=== PATIENT | female | born 1950 | race Caucasian/White ===

== ENCOUNTER 2016-10-29 11:02 | Emergency (ER) | payer MEDICARE, OTHER ==
[2016-10-29 13:16] VITALS: BP 166/65
--- NOTE | 2016-11-01 17:14 | CR ---
INDICATION: Lightheaded, diaphoresis, dialysis, question silent WI. CHEST: Portable AP upright view of the chest 10/29/2016 was compared with 05/24, again revealing the heart to be enlarged with the addition of bipolar pacemaker leads and apparently an AICD. A definite active infiltrate or effusion was not identified. Somewhat elevated right hemidiaphragm is again noted, likely this is anatomic in nature. The aorta is tortuous and calcified. IMPRESSION: ASHD with cardiomegaly and pacer, as well as AICD leads. MTDD
--- NOTE | 2016-11-02 11:16 | ER ---
DATE SEEN: 10/29/2016 The patient was seen at 1110 hours this morning. CHIEF COMPLAINT: Lightheadedness without chest pain, heaviness, irregular heartbeat, diaphoresis, shortness of breath, coughing, palpitations, arm pain, jaw pain, neck pain, back pain, or abdominal pain, diarrhea, fever, chills, cough, dyspnea on exertion, orthopnea, pedal edema. HISTORY OF PRESENT ILLNESS: This 65-year-old woman, who has been on home dialysis since 2014, has previous SD and 2 stents placed in 2014. Today, she had mild diaphoresis and felt slightly clammy when she got up and walked around. Noted her blood pressure was 80/60, and normally it has been up to 102/70. She normally has her home dialysis (which she has had for years) around noontime. She has not had her dialysis yet today. She has dyspnea at approximately 5 feet. This is not unusual for her. Does not put out urine because she has chronic kidney disease. She had a stent placed in her right leg at least 6 months ago. Normally, she weighs 91 kg, and she weighed 91 kg this morning. PAST MEDICAL HISTORY AND PREVIOUS SURGERY: Peritoneal dialysis site; stent, right leg for atherosclerosis 6 months ago; SD with 2 stents in 2014; and dentures, edentulous, teeth removed. CURRENT MEDICATIONS: 1. Potassium chloride 20 mEq daily. 2. Metoprolol tartrate 25 mg daily. 3. Cinacalcet (Sensipar) 30 mg daily, a calcium binder. 4. Amlodipine 2.5 mg daily. 5. Simvastatin 20 mg daily. 6. Sevelamer carbonate (Renvela) 800 mg daily. REVIEW OF SYSTEMS: Negative, except as noted in HPI. PHYSICAL EXAMINATION: VITAL SIGNS: Blood pressure 113/70 and that was repeated at 165/65, heart rate 84 and the heart rate later was 98, respirations 18, oxygen saturation 98% and also 100%. GENERAL: The patient is alert, mildly obese, pear-shaped woman, in no acute distress. She has moderate dark pigmentation on her skin. She is attended by 2 daughters, granddaughter, and her son. Alert woman, she is edentulous. Pleasant in demeanor. HEENT: No scleral icterus noted. PERRLA intact. Pharynx is without abnormality. Mucosa is of normal appearance. No erythema noted. No sinus pressure, discomfort, rhinorrhea, or nasal discomfort. Hearing is good. NECK: No bruits. There are transmitted first, second, third, and fourth heart sounds to the neck. S2 is greater than S1. HEART: S1, S2. There is a soft systolic murmur on the left parasternal border radiating to the neck. LUNGS: Clear to auscultation without rales, rhonchi, or wheezes. Heart: No arrhythmia noted. Chest wall nontender. ABDOMEN: Nontender, has increased abdominal girth. Dialysis site is noted. No sign of erythema, redness, or increased warmth. Dialysis site is clean. No CVA or percussion tenderness. LOWER EXTREMITIES: Trace pedal edema. Pulses: Dorsalis pedis and radius and ulnar pulses are normal in upper and lower extremities. Blood pressures were 113/70, 119/70, 107/56. SKIN: Without diaphoresis. LABORATORY FINDINGS: Hemoglobin 11.7, increased MCH at 35, increased MCV at 103, PMNs 94, lymphocytes 4, monos 2. Complete metabolic panel; sodium 136, potassium 3.8, chloride 97, bicarb 22, BUN 52, creatinine 8.8. GFR 5, BUN and creatinine ratio 5.9, glucose 168, calcium 8.2, AST 37, ALT 34, and alkaline phosphatase is 144, slightly elevated creatine kinase 53, CK-MB is 5.5, troponin 0.14. Total protein 6.5, albumin 3.3, and globulin 3.2. EKG: The patient has a pacemaker in place, dual chamber pacemaker with a rate of 60. No change in EKG findings since previous documentation of EKG on 05/24/2014, except at that time she did not have a pacemaker. ASSESSMENT: Elevated troponin, secondary to microvascular disease, occurs with dialysis, and also mild hypotension-mediated elevated troponin this morning, elevated troponin normally occurs with elevated creatinine and kidney failure. No evidence for myocardial infarction or pulmonary embolus clinically on exam. I had a discussion with the patient and noted to her that 1 in 1,000 have elevation with the CPK. Sometimes, this can be abnormal, but many times it is not. There is no way of telling one way or the other, but we can aggressively manage it by performing a stress test, CAT scans, radionucleotide studies, and hospitalize her and/or possibly perform an outpatient stress test. The patient understands the risk and advantage with either procedure. I did discuss with her the complications of both. She decided she would like to do an outpatient stress test. I have the telephone number for the clinic at [facility] in [place], where she can schedule this. She plans to do that with her family after discharge. The patient understands the risks and advantages of either inpatient hospitalization or outpatient stress testing. DIAGNOSES: 1. Elevated troponins, question significance, probably mostly mediated by renovascular disease. Also, reflux, increased risk the patient has because of microvascular injury that occurs with renal vascular disease, and this is increased greater than the usual population for acute coronary syndrome or coronary artery disease, no evidence for pericardial effusion or pericarditis. No evidence of myocardial infarction on the basis of the EKG. The patient has a pacemaker in place, dual chamber pacemaker, and also did experience mild hypotension with transient diaphoresis, which also could have mediated myocardial ischemia and result in microvascular changes, resulting in elevated troponin. In addition to that, it may be what is seen with chronic kidney disease. 2. Obesity. 3. Chronic kidney disease. 4. Normal potassium and normal calcium. 5. Patient has daily home dialysis. 6. Edentulous. 7. Previous stent placement in the heart and 6 months ago placement in the right lower leg, reflecting extensive nature of her atherosclerotic vascular disease. 8. CK-MB was performed, it is slightly high, normally it is less than 5, this is 5.5. I do not think she has intercurrent myocardial changes on the basis of CPK-MB. She has neutrophilia. The patient will be following up with stress test this next week and [facility]or [facility]. Follow up with doctor otherwise in a week. She is supposed to see Sole Flannery NP, in the clinic later next week. It would be great to have her stress test completed before she has visit with her member service specialist. /[id number] AAKASH/RIOS
== END 2016-10-29 13:45 | disposition home or self-care (01) ==
LOC: FB.ED 11:02
DX: R42 Dizziness and giddiness (principal); R61 Generalized hyperhidrosis; R79.89 Other specified abnormal findings of blood chemistry; I25.2 Old myocardial infarction; E66.9 Obesity, unspecified; N18.9 Chronic kidney disease, unspecified; Z95.5 Presence of coronary angioplasty implant and graft; Z99.2 Dependence on renal dialysis; Z79.899 Other long term (current) drug therapy
CPT/HCPCS: 36415; 71010; 80053; 82550; 82553; 84484; 85025; 93005; 99284

== ENCOUNTER 2016-10-30 15:13 | Emergency (ER) | payer MEDICARE, OTHER ==
[2016-10-30 15:51] VITALS: BP 102/66
--- NOTE | 2016-11-02 11:34 | ER ---
DATE SEEN: 10/30/2016 HISTORY OF PRESENT ILLNESS: The patient was at [facility], appeared to be dizzy, lightheaded, experienced syncope, and was brought to the hospital for further evaluation. I saw her yesterday about 1110 hours. Noted to have lightheadedness without chest pain and without other cardiovascular symptoms. PAST MEDICAL HISTORY: Significant for myocardial infarction in 2014 with 2 stents placed in 2014, also a stent placed in March 2016 in right leg. She was clammy, lightheaded, and dizzy yesterday when she was walking around. EMERGENCY ROOM COURSE: Yesterday, on entering the hospital, she had a normal EKG, but she had elevated troponin 0.14. She had also elevated creatinine at 8.5. I spoke to Dr. Maxwell regarding her status. I gave her 2 choices, the patient was given 2 choices to go home and have further stress test performed on Tuesday or be sent to [facility] and have cardiovascular tests undertaken. The patient chose to go home, knowing the risks. She returns today with this episode. PHYSICAL EXAMINATION: GENERAL: She is mildly lightheaded. At present, she is not diaphoretic. She is alert. CARDIOVASCULAR : Has a split S1 and trace systolic murmur. No irregularity of rhythm. No pedal edema. LUNGS: Clear to auscultation. ABDOMEN: Soft. No guarding. No discomfort. NEUROLOGIC: The patient is alert. She has a troponin today of 6.4. This was discussed with Dr. Maxwell. The patient is transferred for further cardiovascular intervention. The patient will have a catheterization performed on 10/31/[address] Maxwell. Other slightly abnormal labs are noted on the chart. White count 13,100, PMNs 86, lymphocytes 7, bands 3. Sodium 133, potassium 3.5, chloride 95, bicarbonate 22, BUN 55, creatinine 8.7. The creatinine is slightly low from yesterday, yesterday it was 8.9. GFR 5 (stage 4 chronic kidney disease). Glucose 177. Lactic acid 4.5. Blood cultures have been obtained. Troponin 6.4 today. TSH 4.46. Arrangements were made for transfer to [facility]. New EKG changes: She has new T-wave elevation today in V4, V5, and V6 present, but there is no ST elevation. Yesterday, she had flat T-waves in V5, V6, and V4. The ST depression has increased in V5 today by at least a millimeter. Remainder of the leads is unchanged. She has a dual-chamber pacemaker. DIAGNOSES: 1. Non-ST elevation myocardial infarction. 2. Chronic kidney disease. 3. Hypertension. The patient was seen at 1535 hours and lab orders were placed. /[id number] AAKASH/RIOS
== END 2016-10-30 17:32 ==
LOC: FB.ED 15:13
DX: I21.4 Non-ST elevation (NSTEMI) myocardial infarction (principal); I12.9 Hypertensive chronic kidney disease with stage 1 through stage 4 chronic kidney disease, or unspecified chronic kidney disease; N18.4 Chronic kidney disease, stage 4 (severe); Z95.0 Presence of cardiac pacemaker; Z95.5 Presence of coronary angioplasty implant and graft
CPT/HCPCS: 36415; 80053; 83605; 84443; 84484; 85025; 86140; 87040; 93005; 99285

== ENCOUNTER 2017-01-04 22:31 | Emergency (ER) | payer MEDICARE, OTHER ==
[2017-01-04 23:50] VITALS: BP 72/40
--- NOTE | 2017-01-05 23:15 | ER ---
DATE SEEN: 01/04/2017 TIME SEEN: Midnight. CHIEF COMPLAINT: Rectal pain. HISTORY OF PRESENT ILLNESS: A 66-year-old female, who complains of rectal pain and constipation. She presented to the ER with a lot of pain that has been going on for several days. She states that she has a history of chronic constipation and has been using Metamucil with minimal relief. She denies any vomiting. She also stated that she has typically low blood pressure in the 80s. No fever or chills were reported. No urinary symptoms. MEDICATIONS: Recorded on [employer]. ALLERGIES: Recorded on [employer]. Allergies are cephalosporin, cephalexin, and lisinopril. PHYSICAL EXAMINATION: GENERAL: She is not in distress. VITAL SIGNS: Blood pressure initially 104/77, pulse is 90, and temp 96.6. RECTAL: Revealed anal skin tags. Mild rectal pain, but no fissure. No occult blood. No stool in the rectal vault. IMPRESSION: Rectal pain. PLAN: Before I was called to see her, she passed a large bowel movement and was relieved by the time I saw her in the exam room. I advised, however, that she should have a colonoscopy and return visit to the clinic tomorrow morning to have another examination and especially check a blood pressure. She can use Preparation H as needed and drink lots of fluids and high-fiber diet and Metamucil p.r.n. /[id number] GIRMA/RIOS
== END 2017-01-04 23:36 | disposition home or self-care (01) ==
LOC: FB.ED 22:31
DX: K62.89 Other specified diseases of anus and rectum (principal); Z88.1 Allergy status to other antibiotic agents; Z88.8 Allergy status to other drugs, medicaments and biological substances
CPT/HCPCS: 99282; 99283

== ENCOUNTER 2017-01-10 11:58 | Emergency (ER) | payer MEDICARE, OTHER ==
[2017-01-10] MEDS ORDERED: Sodium Chloride 0.9% 1,000 ML IV ONE (12:23)
--- NOTE | 2017-01-10 12:37 | EDM.PDOC ---
ED HPI GENERAL MEDICAL PROBLEM - General Chief Complaint: Cardiovascular Problem Stated Complaint: dizzy double vision Time Seen by Provider: 01/10/17 12:00 Source of Information: Reports: Patient, Family, Old Records History Limitations: Reports: No Limitations - History of Present Illness INITIAL COMMENTS - FREE TEXT/NARRATIVE: Tonia comes to [facility] ED with sxs of dizziness ie lt headiness and low BP 74/ 46. She has had these sxs in the past, related to ischemic cardiomyopathy and valvular heart disease, and has an appt at [facility] in [place] in 3 weeks. There has been no interval hx of palpitations, chest pain, SOB, falls or LOC. She performs PD at home over the past 10 years for CKD V. - Related Data Allergies Allergy/AdvReac Type Severity Reaction Status Date / Time cephalexin Allergy Rash Verified 01/10/17 12:02 Cephalosporins Allergy Rash Verified 01/10/17 12:02 lisinopril Allergy Cough Verified 01/10/17 12:02 Home Meds: Home Meds Cinacalcet [Sensipar] 30 mg PO DAILY 05/25/14 [History] Metoprolol Tartrate 25 mg PO DAILY 05/25/14 [History] Potassium Chloride [Klor-Con M20] 20 meq PO DAILY 05/25/14 [History] Calcitriol [Rocaltrol] 0.25 mcg PO ASDIRECTED 01/04/17 [History] Calcium Acetate [PhosLo] 667 mg PO TID 01/04/17 [History] Cholecalciferol (Vitamin D3) [Vitamin D3] 5,000 unit PO DAILY 01/04/17 [History] Cinacalcet [Sensipar] 30 mg PO DAILY 01/04/17 [History] Clopidogrel [Plavix] 75 mg PO DAILY 01/04/17 [History] Fluticasone/Salmeterol [Advair 250-50 Diskus] 1 inhalation PO BID 01/04/17 [ History] Levothyroxine Sodium [Synthroid] 25 mcg PO DAILY 01/04/17 [History] Metoprolol Succinate [Toprol Xl] 25 mg PO DAILY 01/04/17 [History] Nitroglycerin [Nitrostat] 0.4 mg SL ASDIRECTED PRN 01/04/17 [History] Potassium Chloride [Klor-Con M20] 20 meq PO DAILY 01/04/17 [History] Sevelamer Carbonate [Renvela] 800 mg PO TID 01/04/17 [History] atorvaSTATin Calcium [Atorvastatin Calcium] 40 mg PO ASDIRECTED 01/04/17 [ History] Past Medical History HEENT History: Reports: Impaired Vision Other HEENT History: wears glasses Cardiovascular History: Reports: MO, Pacemaker, Stents Other Cardiovascular History: needs valve replacement, MO x 2 Respiratory History: Reports: Asthma Gastrointestinal History: Reports: Hemorrhoids Genitourinary History: Reports: Dialysis 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: Musculoskeletal History: Reports: Arthritis Neurological History: Reports: Seizure Psychiatric History: Reports: Anxiety, Depression Endocrine/Metabolic History: Reports: Hypothyroidism, Obesity/BMI 30+ - Infectious Disease History Infectious Disease History: Reports: Chicken Pox, Measles, Mumps - Past Surgical History Cardiovascular Surgical History: Reports: Coronary Artery Stent GI Surgical History: Reports: None Musculoskeletal Surgical History: Reports: None Social & Family History - Family History Family Medical History: Noncontributory - Tobacco Use Smoking Status *Q: Never Smoker Second Hand Smoke Exposure: No - Caffeine Use Caffeine Use: Reports: None - Recreational Drug Use Recreational Drug Use: No ED ROS GENERAL - Review of Systems Review Of Systems: See Below Constitutional: Reports: Weakness HEENT: Reports: No Symptoms Respiratory: Reports: No Symptoms Cardiovascular: Reports: Lightheadedness Endocrine: Reports: No Symptoms GI/Abdominal: Reports: No Symptoms : Reports: No Symptoms Musculoskeletal: Reports: No Symptoms Skin: Reports: No Symptoms Neurological: Reports: Dizziness Psychiatric: Reports: No Symptoms Hematologic/Lymphatic: Reports: No Symptoms Immunologic: Reports: No Symptoms ED EXAM, GENERAL - Physical Exam Exam: See Below Exam Limited By: No Limitations General Appearance: Alert, WD/WN, No Apparent Distress Eye Exam: Bilateral Eye: Normal Inspection, PERRL Ears: Normal External Exam Nose: Normal Inspection Throat/Mouth: Normal Inspection, Normal Oropharynx Head: Normocephalic Neck: Normal Inspection, Supple, Non-Tender, Full Range of Motion Respiratory/Chest: Lungs Clear, Normal Breath Sounds, Chest Non-Tender Cardiovascular: No JVD, Other (paced rhythm) GI/Abdominal: Normal Bowel Sounds, Soft, Non-Tender, No Organomegaly, No Distention, No Mass, Other (PD access L mid abdomen) Rectal (Female) Exam: Deferred Back Exam: Normal Inspection, Full Range of Motion Extremities: Normal Inspection Neurological: Alert, Oriented, CN II-XII Intact Psychiatric: Normal Affect, Normal Mood Skin Exam: Warm, Dry Lymphatic: No Adenopathy Course - Vital Signs Text/Narrative:: Tonia remained stable at the [facility] ED. She was administered 1L NS over an hour , with little change in BP, although she did ambulate without dizziness when up. Her lab work remained baseline. Last Recorded V/S: Last Vital Signs Temp 36.2 C 01/10/17 12:03 Pulse Resp BP Pulse Ox - Orders/Labs/Meds Orders: Active Orders 24 hr Category Date Time Status COMPREHENSIVE METABOLIC PN,CMP [CHEM] Stat Lab 01/10/17 12:35 Results PRO B-TYPE NATRIUR PEPT,BNPPRO [CHEM] Stat Lab 01/10/17 12:35 Results EKG 12 Lead [EK] Routine Ther 01/10/17 12:24 Ordered Labs: Laboratory Tests 01/10/17 01/10/17 01/10/17 Range/Units 12:35 12:35 12:35 WBC 11.4 (4.5-12.0) X10-3/uL RBC 3.61 (3.23-5.20) x10(6)uL Hgb 13.1 (11.5-15.5) g/dL Hct 39.6 (30.0-51.3) % MCV 109.8 H (80-96) fL MCH 36.4 H (27.7-33.6) pg MCHC 33.2 (32.2-35.4) g/dL RDW 17.5 H (11.5-15.5) % Plt Count 188 (125-369) X10(3)uL MPV 8.0 (7.4-10.4) fL Neut % (Auto) 72.1 (46-82) % Lymph % (Auto) 11.9 L (13-37) % Owsley % (Auto) 8.8 (4-12) % Eos % (Auto) 6 H (1.0-5.0) % Baso % (Auto) 1 (0-2) % Neut # (Auto) 8.2 (1.6-8.3) # Lymph # (Auto) 1.4 (0.6-5.0) # Owsley # (Auto) 1.0 (0.0-1.3) # Eos # (Auto) 0.7 (0.0-0.8) # Baso # (Auto) 0.1 (0.0-0.2) # Sodium 136 (135-145) mmol/L Potassium 4.2 (3.5-5.3) mmol/L Chloride 96 L (100-110) mmol/L Carbon Dioxide 26 (23-29) mmol/L BUN 29 H D (8-23) mg/dL Creatinine 7.6 H* (0.6-1.3) mg/dL Est Cr Clr Drug Dosing TNP Estimated GFR (MDRD) 5 L (>60) BUN/Creatinine Ratio 3.8 L (9-20) Glucose 105 (80-116) mg/dL Calcium 8.3 L (8.6-10.2) mg/dL Total Bilirubin 0.5 (0.1-1.3) mg/dL AST 42 H D (5-27) IU/L ALT 26 D (14-26) IU/L Alkaline Phosphatase 135 H (56-112) IU/L Troponin I 0.16 H (0.02-0.06) NG/ML Total Protein 6.3 (6.0-8.0) g/dL Albumin 2.5 L (3.2-4.6) g/dL Globulin 3.8 g/dL Albumin/Globulin Ratio 0.7 Meds: Medications Discontinued Medications Generic Name Dose Route Start Last Admin Trade Name Freq PRN Reason Stop Dose Admin Sodium Chloride 1,000 mls @ 999 mls/hr 01/10/17 12:23 01/10/17 12:25 Normal Saline IV 01/10/17 13:23 999 mls/hr .BOLUS ONE Administration Departure - Departure Time of Disposition: 13:38 Disposition: Home, Self-Care 01 Condition: Fair Clinical Impression: Hypotension, chronic, H/O valvular heart disease, Chronic kidney disease (CKD) Referrals: [facility] [employer] [Primary Care Provider] - Forms: ED Department Discharge - Problem List & Annotations (1) H/O valvular heart disease SNOMED Code(s): 390104347 Code(s): Z86.79 - PERSONAL HISTORY OF OTHER DISEASES OF THE CIRCULATORY SYSTEM Status: Acute Current Visit: Yes Annotation/Comment:: Tonia has reported valvular heart disease, and has an appt at [facility] in a few weeks for intake. No change in medical therapy. (2) Hypotension, chronic SNOMED Code(s): 27398581 Code(s): I95.89 - OTHER HYPOTENSION Status: Acute Current Visit: Yes Annotation/Comment:: Hypotension related to valvular heart disease. (3) Chronic kidney disease (CKD) SNOMED Code(s): 015249664 Code(s): N18.9 - CHRONIC KIDNEY DISEASE, UNSPECIFIED Status: Acute Current Visit: Yes Qualifiers: Chronic kidney disease stage: on chronic dialysis Qualified Code(s): N18.6 - End stage renal disease; Z99.2 - Dependence on renal dialysis; Z99.2 - Dependence on renal dialysis; Z99.2 - Dependence on renal dialysis; Z99.2 - Dependence on renal dialysis - Problem List Review Problem List Initiated/Reviewed/Updated: Yes - My Orders Last 24 Hours: My Active Orders 01/10/17 12:24 EKG 12 Lead [EK] Routine 01/10/17 12:35 COMPREHENSIVE METABOLIC PN,CMP [CHEM] Stat PRO B-TYPE NATRIUR PEPT,BNPPRO [CHEM] Stat - Assessment/Plan Last 24 Hours: My Active Orders 01/10/17 12:24 EKG 12 Lead [EK] Routine 01/10/17 12:35 COMPREHENSIVE METABOLIC PN,CMP [CHEM] Stat PRO B-TYPE NATRIUR PEPT,BNPPRO [CHEM] Stat Plan: Follow up at [facility] and PCP.
== END 2017-01-10 13:59 | disposition home or self-care (01) ==
LOC: FB.ED 11:58
DX: I95.89 Other hypotension (principal); I38 Endocarditis, valve unspecified; N18.9 Chronic kidney disease, unspecified; J45.909 Unspecified asthma, uncomplicated; F32.9 Major depressive disorder, single episode, unspecified; E03.9 Hypothyroidism, unspecified; Z79.02 Long term (current) use of antithrombotics/antiplatelets; Z79.899 Other long term (current) drug therapy; Z88.1 Allergy status to other antibiotic agents; Z88.8 Allergy status to other drugs, medicaments and biological substances
CPT/HCPCS: 36415; 80053; 83880; 84484; 85025; 93005; 96360; 96361; 99284; J7040; 99285